=== PATIENT | female | born 1950 | race Caucasian/White ===

== ENCOUNTER → 2017-02-24 | Outpatient (CLI) | payer BC ==
[~2017-02-24] MED LIST: ASA325 MG PO; CRESTOR10 MG PO; FLEXERIL-DPS10 MG PO; LEVOTHYROXINE100 MCG PO; MIRALAX PACKET17 GM PO; PERCOCET 5 DPS1 TAB PO; PROTONIX40 MG PO; TYLENOL DPS325 MG OP; ULTRAM DPS50 MG PO; VISTARIL-DPS50 MG PO; ZANAFLEX4 MG PO
== END | disposition home or self-care (01) ==
LOC: RAD.S 09:20
DX: Z12.31 Encounter for screening mammogram for malignant neoplasm of breast (principal)